=== PATIENT | male | born 1945 ===

== ENCOUNTER 2023-02-18 07:19 | Day surgery (SDC) | payer MEDICARE, OTHER ==
[~2023-02-18] VITALS: Ht 190.5 cm; Wt 119.0 kg
[2023-02-18] VITALS (9 sets, daily range): BP systolic 101–144; BP diastolic 66–89
[~2023-02-18 07:19] MED LIST: ASPI325; ASPI325 PO; ASPI81EC PO; CARV25 PO; CARV3.125 PO; ELIQUIS2.5 MG PO; ENTRESTO 24 MG1 EACH PO; FURO20 PO; HYDACE5 PO; HYDCHL12.5 PO; Isosorbide Mono30 MG PO; LISI20 PO; LOSA50 PO; METF500 PO; NITR.4SL SL; POTCHL20ER PO; SOLIQUA 100 UNIT3 M1 SQ; SPIR25 PO; TRAM50 PO; WARF5 PO; [UNRECOGNIZED DRUG - OTHER] PO
--- NOTE | 2023-02-18 09:21 | NUR ---
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 TR BAND IN PLACE TO THE RIGHT RADIAL WITH 12 ML OF AIR IN THE BAND. NO BLEEDING, NO HEMATOMA NOTED. BROUGHT TO THE BEDSIDE. COFFEE SERVED. CALL LIGHT IN REACH.
--- NOTE | 2023-02-18 10:44 | NUR ---
BEGAN TAKING AIR OUT OF THE TR BAND. NO BLEEDING NOTED.
--- NOTE | 2023-02-18 10:58 | NUR ---
TR BAND IS FLAT AND NO BLEEDING NOTED. NO HEMATOMA NOTED. VVS. PIV REMOVED. CATH TIP INTACT. PRESSURE DRESSING APPLIED TO THE RIGHT AC.
--- NOTE | 2023-02-18 11:32 | NUR ---
TR BAND REMOVED AND SITE CLEANED AND CLOTH DOT APPLIED AND WHITE BOARD REPLACED TO THE RIGHT RADIAL SITE. PATIENT DRESSED AND ALL BEONGINGS GATHERED. REVEIWED ALL DISCHARGE INSTRUCTIONS WITH THE PATIENT AND AND COPIES GIVEN. THE OFFICE WILL CALL WITH A FOLLOW UP APPOINTMENT. PATIENT TO A WHEELCHAIR AND DISCHARGED HOME WITH A CERTIFIED DETENTION DEPUTY AT 1140.
== END 2023-02-18 15:10 | disposition home or self-care (01) ==
LOC: MHTC 07:19
DX: I25.10 Atherosclerotic heart disease of native coronary artery without angina pectoris (principal); I50.22 Chronic systolic (congestive) heart failure; I47.29 Other ventricular tachycardia; R94.39 Abnormal result of other cardiovascular function study; I48.21 Permanent atrial fibrillation; I11.0 Hypertensive heart disease with heart failure; G47.33 Obstructive sleep apnea (adult) (pediatric); E11.9 Type 2 diabetes mellitus without complications
CPT/HCPCS: 76937; 93458; 99152; 99153; C1769; C1887; C1894; J1644; J2250; J3010; J7030; J7050; Q9967

== ENCOUNTER 2024-01-16 08:46 | Emergency (ER) | payer MEDICARE, OTHER ==
[~2024-01-16] VITALS: Ht 190.5 cm; Wt 116.1 kg
[~2024-01-16 08:46] MED LIST changes: +ATOR40TA PO; +Coreg CR20 MG PO; -ELIQUIS2.5 MG PO; +ELIQUIS5 M2 PO; +K-TAB ER20 ME1 PO; -POTCHL20ER PO; +SOLIQUA 100 UNIT3 M1 SC; -SOLIQUA 100 UNIT3 M1 SQ
[2024-01-16 09:46] LABS: BASOPHILS ABSOLUTE AUTO 0.04 K/mm3 (0.00-0.23); BASOPHILS PERCENT AUTO 1 % (0-2); EOSINOPHILS ABSOLUTE AUTO 0.12 K/mm3 (0.00-0.68); EOSINOPHILS PERCENT AUTO 2 % (0-6); Hematocrit 36.8 % (37.0-53.0); Hemoglobin 12.6 g/dL (13.5-17.5); IMMATURE GRAN ABSOLUTE AUTO 0.01 K/mm3 (0.00-0.10); IMMATURE GRAN PERCENT AUTO 0 % (0-1); LYMPHOCYTES ABSOLUTE AUTO 2.03 K/mm3 (0.84-5.20); LYMPHOCYTES PERCENT AUTO 29 % (21-46); MONOCYTES ABSOLUTE AUTO 0.54 K/mm3 (0.16-1.47); MONOCYTES PERCENT AUTO 8 % (4-13); Mean Corpuscular HGB 31.1 pg (26.0-34.0); Mean Corpuscular HGB Conc 34.2 g/dL (31.5-36.5); Mean Corpuscular Volume 91 fL (80-100); Mean Platelet Volume 11.5 fL (9.1-12.4); NEUTROPHILS ABSOLUTE AUTO 4.35 K/mm3 (1.96-9.15); NEUTROPHILS PERCENT AUTO 61 % (41-73); Platelet Count 196 K/mm3 (150-400); RDW Coefficient Variation 12.7 % (11.7-14.2); RDW Standard Deviation 42.3 fL (35.1-46.3); Red Blood Cell Count 4.05 M/mm3 (4.30-5.90); White Blood Cell Count 7.09 K/mm3 (4.00-11.30)
[2024-01-16 10:06] LABS: Albumin, Blood 3.7 g/dL (3.4-5.0); Albumin/Globulin Ratio 1.2 (0.8-1.8); Bilirubin, Total 0.7 mg/dL (0.1-1.0); Bun/Creatinine Ratio 17.8 (12.0-20.0); Calcium, Blood 9.4 mg/dL (8.5-10.1); Creatinine, Blood 0.9 mg/dL (0.60-1.20); Globulin, Blood 3.2 g/dL (2.2-4.0); Potassium, Blood 4.6 mmol/L (3.5-5.5); Total Protein, Blood 6.9 g/dL (6.4-8.2)
[2024-01-16 11:48] VITALS: BP 109/72
== END 2024-01-16 13:15 | disposition home or self-care (01) ==
LOC: ER 08:46
PROVIDERS: Physician Assistant
DX: R20.0 Anesthesia of skin (principal); I11.0 Hypertensive heart disease with heart failure; I50.20 Unspecified systolic (congestive) heart failure; E11.9 Type 2 diabetes mellitus without complications; E78.5 Hyperlipidemia, unspecified; G47.33 Obstructive sleep apnea (adult) (pediatric); M19.90 Unspecified osteoarthritis, unspecified site; Z79.84 Long term (current) use of oral hypoglycemic drugs; Z79.4 Long term (current) use of insulin; Z79.899 Other long term (current) drug therapy; Z88.8 Allergy status to other drugs, medicaments and biological substances
CPT/HCPCS: 70450; 70496; 70498; 80053; 84484; 85025; 93005; 93010; 93971; 99284-25; Q9967